=== PATIENT | female | born 1955 | race African-American/Black ===

== ENCOUNTER 2021-02-06 10:48 | Outpatient (REF) | payer MEDICARE, MEDICAID, SELFPAY ==
[2021-02-06 10:58] LABS: MANUAL DIFF FLAG NO
[2021-02-06 11:54] LABS: Basophils Percent Auto 0.6 % (0-2); Eosinophils Absolute Auto 0.3 X10*3/uL (0.0-0.4); Eosinophils Percent Auto 4.8 % (0-4); Hematocrit 36.6 % (37.0-47.0); Hemoglobin 11.9 g/dl (12.0-16.0); Imm Gran Abs Auto 0.01 X10*3/uL (0.00-0.03); Imm Gran Pct Auto 0.2 % (0.0-0.4); Lymphocytes Absolute Auto 2.8 X10*3/uL (1.2-4.9); Lymphocytes Percent Auto 42.4 % (20-40); Mean Corpuscular HGB Conc 32.5 g/dl (31.0-35.0); Mean Corpuscular Hemoglobin 28.8 pg (27.0-33.0); Mean Corpuscular Volume 88.6 fL (80.0-98.0); Mean Platelet Volume 11.9 fL (9.4-12.3); Monocytes Absolute Auto 0.5 X10*3/uL (0.1-1.2); Monocytes Percent Auto 8.1 % (2-11); Neutrophils Absolute Auto 2.9 x10*3/uL (2.0-8.3); Neutrophils Percent Auto 43.9 % (45-73); Platelet Count 233 X10*3/uL (160-400); Red Blood Count 4.13 X10*6/uL (4.20-5.50); White Blood Count 6.6 X10*3/uL (4.8-10.8)
[2021-02-06 12:13] LABS: Estimated Average Glucose 120 mg/dL; Hemoglobin A1c % 5.8 %
[2021-02-06 12:14] LABS: Alanine Aminotransferase 8 U/L (0-31); Alkaline Phosphatase 94 U/L (39-117); Anion Gap 12 (12-20); Aspartate Amino Transferase 9 U/L (5-31); Bilirubin Total 0.4 mg/dL (0.0-1.0); Blood Urea Nitrogen 22 mg/dL (9-16); Calcium 8.9 mg/dL (8.4-10.2); Carbon Dioxide 18 mmol/L (22-29); Chloride 113 mmol/L (96-108); Cholesterol 147 mg/dL; Estimated Glomerular Filt Rate 49; Glucose Fasting 117 mg/dL (60-99); HDL Cholesterol 40 mg/dL; LDL Cholesterol Calculated 93 mg/dl; Potassium 4.1 mmol/L (3.3-5.1); Sodium 139 mmol/L (135-145); Total Protein 7.2 g/dL (6.5-8.0); Triglycerides 70 mg/dL
[2021-02-06 12:36] LABS: TSH reflex Free T4 1.71 uIU/mL (0.32-4.0)
== END 2021-02-06 10:49 | disposition home or self-care (01) ==
LOC: HO.LAB 10:48
PROVIDERS: PCP Physician Assistant; Visit Provider Physician Assistant
DX: E11.9 Type 2 diabetes mellitus without complications (principal); I10 Essential (primary) hypertension
CPT/HCPCS: 36415; 80053; 80061; 82043; 83036; 84443; 85025; 85027

== ENCOUNTER 2021-10-31 12:45 | Outpatient (REF) | payer MEDICARE, SELFPAY ==
[2021-10-31 13:29] LABS: Hemoglobin 13.1 g/dl (12.0-16.0); Mean Corpuscular HGB Conc 32.8 g/dl (31.0-35.0); Mean Corpuscular Hemoglobin 29.6 pg (27.0-33.0); Mean Corpuscular Volume 90.5 fL (80.0-98.0); Mean Platelet Volume 11.7 fL (9.4-12.3); Platelet Count 202 X10*3/uL (160-400); Red Blood Count 4.42 X10*6/uL (4.20-5.50); Red Cell Distribution Width 15.5 % (11.0-16.0); White Blood Count 5.6 X10*3/uL (4.8-10.8)
[2021-10-31 13:59] LABS: Alanine Aminotransferase 6 U/L (0-31); Albumin Level 3.8 g/dL (3.5-5.0); Alkaline Phosphatase 83 U/L (39-117); Anion Gap 15 (12-20); Aspartate Amino Transferase 8 U/L (5-31); Bilirubin Direct < 0.2 mg/dL (0.0-0.5); Bilirubin Total 0.3 mg/dL (0.0-1.0); Blood Urea Nitrogen 23 mg/dL (9-16); Calcium 10.3 mg/dL (8.4-10.2); Carbon Dioxide 23 mmol/L (22-29); Chloride 108 mmol/L (96-108); Estimated Glomerular Filt Rate 43; Glucose Random 97 mg/dL (60-115); Sodium 142 mmol/L (135-145)
== END 2021-10-31 12:46 | disposition home or self-care (01) ==
LOC: HO.LAB 12:45
PROVIDERS: PCP Physician Assistant; Visit Provider Physician Assistant
DX: I10 Essential (primary) hypertension (principal)
CPT/HCPCS: 36415; 80048; 80076; 85027

== ENCOUNTER 2021-11-15 13:40 | Outpatient (REF) | payer MEDICARE, SELFPAY ==
[2021-11-15 15:06] LABS: Hematocrit 39.2 % (37.0-47.0); Mean Corpuscular HGB Conc 33.2 g/dl (31.0-35.0); Mean Corpuscular Hemoglobin 29.9 pg (27.0-33.0); Mean Corpuscular Volume 90.1 fL (80.0-98.0); Mean Platelet Volume 12.3 fL (9.4-12.3); Platelet Count 199 X10*3/uL (160-400); Red Blood Count 4.35 X10*6/uL (4.20-5.50); Red Cell Distribution Width 16.1 % (11.0-16.0); White Blood Count 6.7 X10*3/uL (4.8-10.8)
[2021-11-15 15:51] LABS: Iron 75 mcg/dL (30-160); Percent Iron Saturation 29 % (15-50); Total Iron Binding Capacity 257 mcg/dL (228-428); Unsaturated Iron Binding 182 ug/dL
[2021-11-19 19:48] LABS: Calcium, Ionized 4.9 mg/dL (4.8-5.6)
== END 2021-11-15 13:41 | disposition home or self-care (01) ==
LOC: HO.LAB 13:40
PROVIDERS: PCP Physician Assistant; Visit Provider Internal Medicine
DX: K44.9 Diaphragmatic hernia without obstruction or gangrene (principal); K59.09 Other constipation; E11.9 Type 2 diabetes mellitus without complications; R15.9 Full incontinence of feces; R32 Unspecified urinary incontinence; R53.81 Other malaise; R54 Age-related physical debility; E83.52 Hypercalcemia; F17.200 Nicotine dependence, unspecified, uncomplicated; Z12.11 Encounter for screening for malignant neoplasm of colon; Z99.3 Dependence on wheelchair; Z91.81 History of falling
CPT/HCPCS: 36415; 82330; 83540; 85027; 99212

== ENCOUNTER 2021-12-14 09:37 | Outpatient (REF) | payer OTHER, SELFPAY ==
--- NOTE | ~2021-12-14 | FL_ITS ---
PROCEDURE: FL BARIUM SWALLOW CLINICAL INFORMATION: Diaphragmatic hernia without obstruction or gangrene. COMPARISON: None TECHNIQUE: Barium swallow examination is performed using fluoroscopic evaluation in addition to multiple fluoroscopic spot views. The patient is imaged both upright and prone and using both thick and thin sulfate along with effervescent granules. Fluoroscopy time: 2.3 minutes DAP: 95.243 Gycm2 Images: 25.101 FINDINGS: Following oral administration of thin and thick barium there is normal propagation of bolus from the oral cavity through the pharynx, esophagus into nonreducible moderate-sized hiatal hernia. There are tertiary peristalsis present in the mid and the distal esophagus. No intraluminal or extrinsic compression seen involving the esophagus. FL/FL barium swallow IMPRESSION: Nonreducible moderate-sized hiatal hernia. Presence of tertiary peristalsis in the distal esophagus.
== END 2021-12-14 09:38 | disposition home or self-care (01) ==
LOC: HO.XRAY 09:37
PROVIDERS: PCP Physician Assistant; Visit Provider Internal Medicine
DX: K44.9 Diaphragmatic hernia without obstruction or gangrene (principal)
CPT/HCPCS: 74220

== ENCOUNTER 2022-01-10 10:23 | Outpatient (REF) | payer OTHER, SELFPAY ==
--- NOTE | ~2022-01-10 | CT_ITS ---
EXAMINATION: CT CHEST WITHOUT CONTRAST CLINICAL INFORMATION: Diaphragmatic hernia COMPARISON: Previous abdominal CT May 2009 and barium swallow November 2021 TECHNIQUE: Axial images through the chest without contrast. Sagittal and coronal reconstructions on the technologist's workstation were performed. DOSE: 212 mGy-cm This CT examination was performed using dose optimization techniques as appropriate, variously including the following: *Automated exposure control *Adjustment of mA and/or kV according to patient size (this includes techniques or standardized protocols for targeted exams where dose is matched to indication/reason for exam; i.e. extremities or head) *Use of iterative reconstruction technique FINDINGS: There is volume loss to the left lower lobe with shift of the central mediastinal structures to the left. There is scarring or subsegmental atelectasis in the inferior segment of the left lower lobe and lingula. The lungs are otherwise clear. There is an enlarged right lobe of the thyroid gland. There are multiple thyroid nodules and small calcifications. No enlarged hilar or mediastinal lymph nodes. Normal heart size. No pericardial effusion. Large esophageal hernia. No pleural effusion or pleural thickening. No diaphragmatic hernia seen. No chest wall mass or enlarged axillary lymph nodes. Images through the upper abdomen are unremarkable. Degenerative changes of the spine. CT/CT chest wo con - High Res IMPRESSION: Large esophageal hernia. Volume loss to the left hemithorax/left lower lobe and scarring or subsegmental atelectasis in the inferior segment of the lingula and left lower lobe. No diaphragmatic hernia seen. Enlarged thyroid gland with multiple nodules. Follow-up thyroid ultrasound recommended.
== END 2022-01-10 10:24 | disposition home or self-care (01) ==
LOC: HO.CT 10:23
PROVIDERS: PCP Physician Assistant; Visit Provider Internal Medicine
DX: K44.9 Diaphragmatic hernia without obstruction or gangrene (principal)
CPT/HCPCS: 71250

== ENCOUNTER → 2022-01-31 11:19 | Outpatient (BNVA) | payer OTHER, SELFPAY | PROVIDERS: PCP Physician Assistant; Referring Provider Physician Assistant; Visit Provider Internal Medicine | DX: Z12.11 Encounter for screening for malignant neoplasm of colon (principal); K44.9 Diaphragmatic hernia without obstruction or gangrene; E04.2 Nontoxic multinodular goiter | CPT/HCPCS: 99212 ==